=== PATIENT | female | born 1980 | race Caucasian/White ===

== ENCOUNTER 2021-01-30 12:48 | Emergency (ER) | payer OTHER ==
[~2021-01-30] VITALS: Ht 180.3 cm; Wt 122.5 kg
[2021-01-30] MEDS ORDERED: METFORMIN HCL500 M3 PO (13:02)
[2021-01-30 14:14] VITALS: BP 124/68
== END 2021-01-30 14:16 | disposition home or self-care (01) ==
LOC: M.ERS 12:48
DX: S61.217A Laceration without foreign body of left little finger without damage to nail, initial encounter (principal); Z98.890 Other specified postprocedural states; W26.8XXA Contact with other sharp object(s), not elsewhere classified, initial encounter; Y93.89 Activity, other specified; Y92.89 Other specified places as the place of occurrence of the external cause; Y99.8 Other external cause status